=== PATIENT | female | born 1955 | race Caucasian/White ===

== ENCOUNTER → 2017-02-20 | Outpatient (CLI) | payer OTHER ==
[~2017-02-20] MED LIST: DAYPRO600 M1 PO; MEDROL DOSEPAK4 MG PO
== END | disposition home or self-care (01) ==
LOC: RAD 12:13
DX: M25.552 Pain in left hip (principal)

== ENCOUNTER → 2017-06-06 | Outpatient (CLI) | payer OTHER | END | disposition home or self-care (01) | LOC: ORTHO 04:02 | DX: M47.897 Other spondylosis, lumbosacral region (principal); M25.552 Pain in left hip; M25.551 Pain in right hip; M79.605 Pain in left leg; M79.604 Pain in right leg ==

== ENCOUNTER → 2017-07-29 | Outpatient (CLI) | payer OTHER | END | disposition home or self-care (01) | LOC: MRI 13:00 | DX: M48.061 Spinal stenosis, lumbar region without neurogenic claudication (principal); M51.27 Other intervertebral disc displacement, lumbosacral region; M45.5 Ankylosing spondylitis of thoracolumbar region; M47.896 Other spondylosis, lumbar region ==

== ENCOUNTER 2017-09-12 15:41 | Inpatient (IN) | payer OTHER ==
[~2017-09-12] VITALS: Ht 182.8 cm; Wt 133.6 kg
--- NOTE | ~2017-09-12 | PR ---
[place], [place] PROGRESS NOTE NAME: JEREMIAH VALE UNIT #: [id number] ROOM: 408 DOCTOR: OBI MANNING MD BIRTHDATE: [birth year] DOS: 09/16/2017 SUBJECTIVE: The patient is doing fine without any complaint. She is ambulating without any pain. OBJECTIVE: VITAL SIGNS: Blood pressure is , pulse of 58, respirations 18, temperature 98.0. LUNGS: Diminished breath sounds. No wheezes, rales, rhonchi heard. HEART: Regular. ABDOMEN: Obese, soft, nontender. EXTREMITIES: Decreased edema around the thigh. There is no cellulitis noted. ASSESSMENT AND PLAN: 1. Abscess of the right thigh, improving with packings and antibiotics. 2. Benign hypertension, poorly controlled, possibly related to anxiety of being here. She is anxious to go home. We will follow up that as an outpatient. Medication changes were made. OBI MANNING MD CM:PNTRANS [id number] OBI MANNING MD 09/16/17 0903 interface
--- NOTE | ~2017-09-12 | PR ---
[place], [place] PROGRESS NOTE NAME: JEREMIAH VALE UNIT #: [id number] ROOM: 408 DOCTOR: OBI MANNING MD BIRTHDATE: [birth year] DOS: 09/15/2017 SUBJECTIVE: The patient is doing fine without any complaints. OBJECTIVE: GENERAL: She is awake and alert and oriented. VITAL SIGNS: Blood pressure is 146/80, pulse of 70, respirations 18, temperature 97.5. LUNGS: Diminished breath sounds, clear. HEART: Regular. ABDOMEN: Obese, soft, nontender. EXTREMITIES: Without any edema. Right thigh, there is less induration, less swelling, less redness noticed today. LABORATORY DATA: White cell count is normal at 7.1, hemoglobin 11.2, hematocrit 34.0. Blood culture shows no bacterial growth. ASSESSMENT AND PLAN: 1. Abscess of the thigh, incision and drained and doing well. Plan is to arrange visiting nurses for packing as an outpatient and the patient can be discharged on p.o. antibiotics. We will plan to discharge in the morning. 2. Type 2 diabetes mellitus. Blood sugars are controlled. 3. Benign hypertension, not very well controlled, possibly from anxiety and most likely discomfort from the recent procedure. Dilaudid was given, readjust antihypertensives. OBI MANNING MD CM:PNTRANS [id number] OBI MANNING MD 09/15/17926 interface
--- NOTE | ~2017-09-12 | WRIGHTHP ---
[place], [place] PATIENT HISTORY AND PHYSICAL EXAM NAME: JEREMIAH VALE [facility] #: [id number] UNIT #: [id number] ROOM: 408 DOCTOR: RAFI AMOS MD BIRTHDATE: [birth year] DOS: 09/12/2017 HISTORY OF PRESENT ILLNESS: The patient is a 62-year-old female with a past medical history of: 1. Obesity. 2. Type 2 diabetes mellitus. 3. Major depression, recurrent. 4. COPD. 5. Hypothyroidism. 6. Mixed hyperlipidemia. 7. Chronic primary insomnia. 8. Benign essential hypertension. The patient presented to the Emergency Department with complaints of increasing pain and swelling in the right inner thigh and she was found to have an abscess. The patient was admitted and taken for incision and drainage. The patient's wound cultures were already sent prior to this by Dr. Abarca. The patient is starting to feel better. No chest pain. No shortness of breath. No GI or urinary symptoms. REVIEW OF SYSTEMS: LUNGS: No increasing shortness of breath. GASTROINTESTINAL: No nausea, vomiting, diarrhea or constipation. CARDIOVASCULAR: No chest pains or palpitations. FAMILY HISTORY: Noncontributory. SOCIAL HISTORY: The patient is . Denies smoking cigarettes, alcohol and drug abuse. HOME MEDICATIONS: The patient takes buspirone, tizanidine, amlodipine, clonidine, doxazosin, Vasotec, fenofibrate, folic acid, metoprolol, gabapentin, Tradjenta, Levemir, Lipitor, trazodone. ALLERGIES: Known allergies to PENICILLIN and CLINDAMYCIN and BEE STINGS. PHYSICAL EXAMINATION: GENERAL: The patient is alert, oriented x 3. The patient with obesity, in no visible distress. VITAL SIGNS: Blood pressure 176/90, heart rate 81 beats per minute, breathing 20 times per minute, temperature 98 degrees Fahrenheit. HEENT AND NECK: Extraocular movements are intact. Sclerae are anicteric. Oral mucosa is moist and clean. No obvious facial weakness. Neck is supple without any lymphadenopathy. No thyromegaly. No JVD. No carotid arterial bruits. LUNGS: Clear to auscultation. No wheezing. No rhonchi. CARDIOVASCULAR SYSTEM: Heart rate is regular in rate and rhythm. S1 and S2 normally audible. No significant murmur or any other abnormal cardiac sounds. ABDOMEN: Soft, nontender. No obvious organomegaly. Bowel sounds are present. No obvious herniation. [place], [place] PATIENT HISTORY AND PHYSICAL EXAM NAME: JEREMIAH VALE UNIT #: [id number] ROOM: [facility] DOCTOR: RAFI AMOS MD BIRTHDATE: [birth year] EXTREMITIES: Without significant cyanosis or edema. Warm to touch. The patient had incision and drainage on the right inner thigh. CENTRAL NERVOUS SYSTEM: Alert and oriented x 3. Cranial nerves II-XII are intact. Speech is normal. The patient is able to move all extremities. Normal muscle strength. Deep tendon reflexes are equal on both sides. Plantars were downgoing. LABORATORY DATA: Wound culture is growing group C streptococcus. Normal serum electrolytes. Blood sugar of 240. Normal CBC. Lactic acid level elevated to 2.4, came down to normal. IMPRESSION: 1. The patient with right inner thigh abscess, status post incision and drainage by Dr. Abacra. The patient is doing very well. 2. Uncontrolled type 2 diabetes mellitus. Blood sugars are elevated. Blood sugar is to be monitored and treated. All of her home medications for diabetes including Tradjenta, insulin were all continued. 3. The patient remains on IV vancomycin and cefazolin for recent infection and abscess, which was just drained. 4. Benign essential hypertension, being treated with clonidine and amlodipine. The patient also takes metoprolol. Blood pressure is being monitored and staying high at this time. 5. Mixed hyperlipidemia. Continue the patient on Lipitor. 6. Chronic primary insomnia, treated and controlled with trazodone. 7. Mixed hyperlipidemia, treated with fenofibrate, which has been continued and Lipitor. RAFI AMOS MD CM:HISPHYS:PATIENT HISTORY AND PHYSICAL EXAMINATION 02 22 RAFI AMOS MD 09/13/172122 interface
--- NOTE | ~2017-09-12 | DS ---
[place], [place] DISCHARGE SUMMARY NAME: JEREMIAH VALE UNIT #: [id number] ROOM: 408 DOCTOR: OBI MANNING MD BIRTHDATE: [birth year] DOS: 09/16/2017 DIAGNOSES: 1. Right thigh abscess, status post incision and drainage. 2. Wound culture is growing group C streptococcus. 3. Diabetes mellitus, poorly controlled. 4. Benign hypertension, poorly controlled. 5. Mixed hyperlipidemia. 6. Chronic primary insomnia. 7. Chronic back pain. MEDICATIONS: That she is on discharge will be: Metoprolol 50 q.i.d., Cipro 500 b.i.d., Daypro 600 b.i.d., Levemir 1000 b.i.d., enalapril 20 b.i.d., Symbicort 160 two puffs twice a day, oxycodone 10 q.i.d., Cardura 8 mg daily, folic acid 1 mg daily, clonidine 0.2 b.i.d., Januvia 100 daily, Lipitor 40 daily, fenofibrate 145 daily, Zanaflex 4 mg t.i.d., Neurontin 300 b.i.d., aspirin 81 daily, amlodipine 10 daily, trazodone 100 at bedtime, BuSpar 10 q.i.d. HOSPITAL COURSE: The patient is very well known to us, had seen as an outpatient, had an abscess of the right thigh, was placed on antibiotics and she was seen by surgeon as an outpatient. Dr. Abarca saw her in the office, performed an I and D and felt that the patient would benefit from admission, so was sent out to the Emergency Room. Please refer to H and P dictated by Dr. Carvajal for details. After admission, the patient was placed on IV antibiotics and she was taken for further debridement in the OR. A large abscess was evacuated and packings were applied. The swelling and the redness and the induration have subsided. The wound is clean without any evidence of any eschar. This morning the patient is stable. The plan is to discharge her to home today, to follow up as an outpatient. DISCHARGE INSTRUCTIONS: ADA diet, 1800. Visiting nurses have been consulted for wound care with [facility]. [place], [place] DISCHARGE SUMMARY NAME: JEREMIAH VALE UNIT #: [id number] ROOM: 408 DOCTOR: OBI MANNING MD BIRTHDATE: [birth year] OBI MANNING MD CM:ALEXIS [id number] OBI MANNING MD 09/16/17 0943 interface
--- NOTE | ~2017-09-12 | PR ---
[place], [place] PROGRESS NOTE NAME: JEREMIAH VALE UNIT #: [id number] ROOM: 408 DOCTOR: OBI MANNING MD BIRTHDATE: [birth year] DOS: 09/14/2017 SUBJECTIVE: The patient is not having any new complaints, wants to go home. OBJECTIVE: VITAL SIGNS: Graphic trend shows a pressure of 163/56, pulse of 70, respirations 18, temperature 97.5. LUNGS: Diminished breath sounds. HEART: Regular. ABDOMEN: Obese, soft. EXTREMITIES: No edema. Right thigh looks less red, less swollen, less indurated. ASSESSMENT AND PLAN: 1. Abscess of the right thigh, status post debridement. 2. Group C streptococcus in the wound already on multiple antibiotics. 3. Type 2 diabetes mellitus, insulin-dependent. Blood sugars fairly controlled. 4. Benign hypertension. Continue home meds. Routine labs to be ordered and if surgery clears, we will plan to discharge home soon. OBI MANNING MD CM:PNTRANS [id number] OBI MANNING MD 09/19/17 1557 interface
[2017-09-12 15:48] VITALS: BP 148/78
[2017-09-12] MEDS ORDERED: VASOTEC20 MG PO (15:53)
[2017-09-12] MEDS ORDERED: SYMB160 INH (15:53)
[2017-09-12] MEDS ORDERED: LEVEMIR100 UNIT/1 IV (15:53)
[2017-09-12] MEDS ORDERED: OXYCODONE HCL10 M1 PO (15:54)
[2017-09-12] MEDS ORDERED: CARDURA8 M1 PO (15:54)
[2017-09-12] MEDS ORDERED: NATURE'S BLEND F1 MG PO (15:54)
[2017-09-12] MEDS ORDERED: CLONIDINE0.2 MG PO (15:54)
[2017-09-12] MEDS ORDERED: LIPITOR40 MG PO (15:55)
[2017-09-12] MEDS ORDERED: TRICOR145 M1 PO (15:55)
[2017-09-12] MEDS ORDERED: ZANAFLEX4 M2 PO (15:55)
[2017-09-12] MEDS ORDERED: JANUVIA100 MG PO (15:55)
[2017-09-12] MEDS ORDERED: ASPIR LOW81 MG PO (15:56)
[2017-09-12] MEDS ORDERED: LOPRESSOR50 M1 PO (15:56)
[2017-09-12] MEDS ORDERED: NEURONTIN300 MG PO (15:56)
[2017-09-12] MEDS ORDERED: NORVASC10 MG PO (15:57)
[2017-09-12] MEDS ORDERED: TRAZODONE100 MG PO (15:58)
[2017-09-12] MEDS ORDERED: BUSPIRONE10 MG PO (15:59)
[2017-09-12 16:24] LABS: BASO # 0.1 10*3/uL (0.0-0.1); BASO % 0.8 % (0.0-1.0); HEMATOCRIT 38.2 % (37.0-47.0); HEMOGLOBIN 12.4 g/dl (12.0-16.0); LYMPH # 2.3 10*3/uL (1.3-4.4); MEAN CELL VOLUME 89.9 fl (81.0-99.0); MEAN CORPUSCULAR HGB 29.2 pg (27.0-31.0); MEAN CORPUSCULAR HGB CONC 32.5 g/dl (33.0-37.0); MEAN PLATELET VOLUME 8.9 fl (9.6-12.3); MONO # 0.4 10*3/uL (0.1-1.0); MONO % 5.3 % (3.0-9.0); NEUT # 5.1 10*3/uL (2.3-7.9); NEUT % 63.5 % (47.0-73.0); PLATELET COUNT AUTOMATED 410 10*3/uL (130-400); RED BLOOD COUNT 4.25 10*6/uL (4.10-5.10); RED CELL DISTRI WIDTH 13.4 % (0-14.5)
[2017-09-12 16:27] VITALS: BP 140/70
[2017-09-12 16:32] LABS: ALKALINE PHOSPHATASE 68 U/L (45-117); BUN 12 mg/dl (7-24); CHLORIDE 101 mmol/L (98-107); CREATININE 1.07 mg/dL (0.55-1.02); POTASSIUM 4.1 mmol/L (3.5-5.1); SGOT/AST 29 IU/L (3-35); SGPT/ALT 27 U/L (12-78); SODIUM 135 mmol/L (136-145); TOTAL PROTEIN 7.7 gm/dL (6.4-8.2)
[2017-09-12 16:52] VITALS: BP 141/66
[2017-09-12 20:00] VITALS: BP 150/63
[2017-09-13] VITALS (11 sets, daily range): BP systolic 160–196; BP diastolic 66–100
[2017-09-14] VITALS: BP 146/55
[2017-09-14 08:00] VITALS: BP 163/56
[2017-09-14 12:00] VITALS: BP 170/70
[2017-09-14 16:53] VITALS: BP 172/94
[2017-09-14 18:50] VITALS: BP 168/80
[2017-09-14 20:38] VITALS: BP 184/84
[2017-09-15] VITALS (7 sets, daily range): BP systolic 146–187; BP diastolic 59–81
[2017-09-15 06:20] LABS: BASO % 0.6 % (0.0-1.0); HEMOGLOBIN 11.2 g/dl (12.0-16.0); LYMPH # 2.6 10*3/uL (1.3-4.4); LYMPH % 36.2 % (27.0-41.0); MEAN CELL VOLUME 89.7 fl (81.0-99.0); MEAN CORPUSCULAR HGB 29.6 pg (27.0-31.0); MEAN CORPUSCULAR HGB CONC 32.9 g/dl (33.0-37.0); MEAN PLATELET VOLUME 8.6 fl (9.6-12.3); MONO # 0.4 10*3/uL (0.1-1.0); MONO % 5.2 % (3.0-9.0); NEUT % 56.3 % (47.0-73.0); PLATELET COUNT AUTOMATED 340 10*3/uL (130-400); RED BLOOD COUNT 3.79 10*6/uL (4.10-5.10); RED CELL DISTRI WIDTH 13.5 % (0-14.5); WHITE BLOOD COUNT 7.1 10*3/uL (4.8-10.8)
[2017-09-15 06:48] LABS: BUN 12 mg/dl (7-24); CHLORIDE 105 mmol/L (98-107); CREATININE 0.88 mg/dL (0.55-1.02); POTASSIUM 3.9 mmol/L (3.5-5.1); SODIUM 139 mmol/L (136-145)
[2017-09-16] VITALS: BP 196/75
[2017-09-16 08:00] VITALS: BP 188/77
[2017-09-16] MEDS ORDERED: CIPRO500 MG PO (08:28)
[2017-09-16] MEDS ORDERED: METOPROLOL TART50 M1 PO (08:28)
[2017-09-16] MEDS ORDERED: LEVEMIR100 UNIT/1 SC ×2 (08:41)
== END 2017-09-16 10:00 | disposition home health service (06) | DRG 571 ==
LOC: ED 15:41 → 4E 16:06 → EDHOLD 16:06 → 4E 16:18
PROVIDERS: Internal Medicine; Physician Assistant
PROC: 0JBL0ZZ Excision of Right Upper Leg Subcutaneous Tissue and Fascia, Open Approach (ICD-10-PCS; principal; 2017-09-13)
DX: S71.101A Unspecified open wound, right thigh, initial encounter (principal); L02.415 Cutaneous abscess of right lower limb; E11.65 Type 2 diabetes mellitus with hyperglycemia; F33.9 Major depressive disorder, recurrent, unspecified; L03.115 Cellulitis of right lower limb; B95.4 Other streptococcus as the cause of diseases classified elsewhere; I10 Essential (primary) hypertension; E78.2 Mixed hyperlipidemia; F51.01 Primary insomnia; G89.29 Other chronic pain; M54.9 Dorsalgia, unspecified; E66.9 Obesity, unspecified; J44.9 Chronic obstructive pulmonary disease, unspecified; E03.9 Hypothyroidism, unspecified; X58.XXXA Exposure to other specified factors, initial encounter; Z79.899 Other long term (current) drug therapy; Z79.82 Long term (current) use of aspirin; Z88.0 Allergy status to penicillin; Z88.1 Allergy status to other antibiotic agents; Z91.030 Bee allergy status; Z79.4 Long term (current) use of insulin; Y93.89 Activity, other specified; Y92.89 Other specified places as the place of occurrence of the external cause; Y99.8 Other external cause status; Z68.39 Body mass index [BMI] 39.0-39.9, adult

== ENCOUNTER → 2017-10-01 | Outpatient (CLI) | payer OTHER ==
[~2017-10-01] MED LIST changes: +ASPIR LOW81 MG PO; +BUSPIRONE10 MG PO; +CARDURA8 M1 PO; +CIPRO500 MG PO; +CLONIDINE0.2 MG PO; +JANUVIA100 MG PO; +LEVEMIR100 UNIT/1 IV; +LEVEMIR100 UNIT/1 SC; +LIPITOR40 MG PO; +LOPRESSOR50 M1 PO; +METOPROLOL TART50 M1 PO; +NATURE'S BLEND F1 MG PO; +NEURONTIN300 MG PO; +NORVASC10 MG PO; +OXYCODONE HCL10 M1 PO; +SYMB160 INH; +TRAZODONE100 MG PO; +TRICOR145 M1 PO; +VASOTEC20 MG PO; +ZANAFLEX4 M2 PO
== END | disposition home or self-care (01) ==
LOC: WOUNDCARE 03:24
DX: S71.101D Unspecified open wound, right thigh, subsequent encounter (principal); L02.415 Cutaneous abscess of right lower limb; E11.9 Type 2 diabetes mellitus without complications; I10 Essential (primary) hypertension; Z87.891 Personal history of nicotine dependence; X58.XXXD Exposure to other specified factors, subsequent encounter

== ENCOUNTER → 2017-10-08 | Outpatient (CLI) | payer OTHER | END | disposition home or self-care (01) | LOC: WOUNDCARE 03:58 | DX: S71.101D Unspecified open wound, right thigh, subsequent encounter (principal); L02.415 Cutaneous abscess of right lower limb; E11.9 Type 2 diabetes mellitus without complications; I10 Essential (primary) hypertension; Z87.891 Personal history of nicotine dependence; X58.XXXD Exposure to other specified factors, subsequent encounter ==

== ENCOUNTER → 2017-10-15 | Outpatient (CLI) | payer OTHER | END | disposition home or self-care (01) | LOC: WOUNDCARE 02:30 | DX: S71.101D Unspecified open wound, right thigh, subsequent encounter (principal); L02.415 Cutaneous abscess of right lower limb; E11.9 Type 2 diabetes mellitus without complications; I10 Essential (primary) hypertension; Z87.891 Personal history of nicotine dependence; X58.XXXD Exposure to other specified factors, subsequent encounter ==

== ENCOUNTER → 2017-11-08 | Outpatient (CLI) | payer OTHER | END | disposition home or self-care (01) | LOC: LAB 11:32 | DX: R53.83 Other fatigue (principal) ==

== ENCOUNTER → 2018-01-08 | Outpatient (CLI) | payer OTHER ==
[~2018-01-08] MED LIST changes: +DEXILANT30 MG PO; +TOPROL XL100 MG PO
== END | disposition home or self-care (01) ==
LOC: MAMMO 09:57
DX: Z12.31 Encounter for screening mammogram for malignant neoplasm of breast (principal)

== ENCOUNTER → 2018-01-10 | Day surgery (SDC) | payer OTHER ==
[~2018-01-10] VITALS: Ht 182.8 cm; Wt 134.7 kg
--- NOTE | ~2018-01-10 | PROC NOTE ---
[place], [place] PROCEDURE NOTE NAME: JEREMIAH VALE UNIT #: [id number] ROOM: DOCTOR: KARMEN HOWARD,JAX BIRTHDATE: [birth year] DOS: PROCEDURE: Esophagogastroduodenoscopy and biopsy. INDICATION: Abdominal pain and nausea. An informed consent was obtained from the patient after indication of procedure, the alternatives and potential complications were explained to her. PROCEDURE MEDICATION: Sedation was administered by Anesthesiology Department. SCOPE USED: Olympus diagnostic adult upper endoscope GIF-180, depth of insertion was to the descending duodenum. FINDINGS: After adequate sedation, the patient was placed in left lateral decubitus position. The scope was introduced under direct visualization through the upper esophageal sphincter into the esophagus. Esophageal mucosa appeared normal with no ulcerations or strictures. Lower esophageal sphincter was identified at 42 cm from incisors. Normal-appearing Z line. Stomach was then intubated. Gastric mucosa inspected. Large amounts of solid food were noted suggestive of delayed gastric emptying. The underlying mucosa showed evidence of gastritis, mostly in the antrum and a CLOtest was performed from the gastric antrum and body. Retroflexed views in the fundus showed a grade 1 sliding hiatal hernia. Pylorus was intubated easily. The duodenal bulb and descending duodenum were within normal range. The scope was then withdrawn after the stomach was decompressed. The patient tolerated the procedure well. IMPRESSION: 1. Large amounts of food residues in the stomach, rule out delayed gastric emptying. 2. Small hiatal hernia. 3. Gastritis, CLOtest performed. PLAN: We will review the CLOtest results and treat the patient accordingly. The patient will be scheduled for a smart pill motility study as an outpatient. Office followup will be scheduled in 2-3 weeks. JAX PERAZA MD CM:PROCNOTE:PROCEDURE NOTE 0911 [id number] OBI PERAZA MD
[2018-01-10 08:30] VITALS: BP 131/80
[2018-01-10 09:10] VITALS: BP 156/65
[2018-01-10 09:20] VITALS: BP 160/80
[2018-01-10 09:40] VITALS: BP 158/84
== END | disposition home or self-care (01) ==
LOC: SDC 12-23 10:15
DX: K29.70 Gastritis, unspecified, without bleeding (principal); K44.9 Diaphragmatic hernia without obstruction or gangrene; I10 Essential (primary) hypertension; E11.9 Type 2 diabetes mellitus without complications; J44.9 Chronic obstructive pulmonary disease, unspecified; G43.909 Migraine, unspecified, not intractable, without status migrainosus; K21.9 Gastro-esophageal reflux disease without esophagitis; E66.01 Morbid (severe) obesity due to excess calories; F41.9 Anxiety disorder, unspecified; F32.9 Major depressive disorder, single episode, unspecified; Z68.41 Body mass index [BMI] 40.0-44.9, adult; Z83.3 Family history of diabetes mellitus; Z87.891 Personal history of nicotine dependence; Z82.49 Family history of ischemic heart disease and other diseases of the circulatory system; Z79.899 Other long term (current) drug therapy; Z98.890 Other specified postprocedural states; Z87.19 Personal history of other diseases of the digestive system

== ENCOUNTER → 2020-10-17 | Outpatient (CLI) | payer OTHER ==
[2020-10-17 14:13] LABS: BASO % 0.3 % (0.0-1.0); HEMATOCRIT 43.2 % (37.0-47.0); LYMPH # 1.1 10*3/uL (1.3-4.4); LYMPH % 15.9 % (27.0-41.0); MEAN CELL VOLUME 97.7 fl (81.0-99.0); MEAN CORPUSCULAR HGB 30.8 pg (27.0-31.0); MEAN CORPUSCULAR HGB CONC 31.5 g/dl (33.0-37.0); MEAN PLATELET VOLUME 9.5 fl (9.6-12.3); MONO # 0.4 10*3/uL (0.1-1.0); MONO % 4.9 % (3.0-9.0); NEUT # 5.6 10*3/uL (2.3-7.9); NEUT % 78.5 % (47.0-73.0); PLATELET COUNT AUTOMATED 244 10*3/uL (130-400); RED BLOOD COUNT 4.42 10*6/uL (4.10-5.10); RED CELL DISTRI WIDTH 14.3 % (0-14.5); WHITE BLOOD COUNT 7.2 10*3/uL (4.8-10.8)
[2020-10-17 14:49] LABS: ALBUMIN 3.5 gm/dl (3.1-4.5); CREATININE 1.59 mg/dL (0.55-1.02); FREE T4 0.77 ng/dl (0.76-1.46); POTASSIUM 4.4 mmol/L (3.5-5.1)
[2020-10-17 14:54] LABS: THYROID STIM HORMONE (HS) 1.59 uIU/ml (0.358-4.75); TOTAL PROTEIN 7.7 gm/dL (6.4-8.2)
== END | disposition home or self-care (01) ==
LOC: LAB 13:26 → MAMMO 14:00
PROVIDERS: ATTEND Internal Medicine
DX: Z12.31 Encounter for screening mammogram for malignant neoplasm of breast (principal); I10 Essential (primary) hypertension; E55.9 Vitamin D deficiency, unspecified; E11.9 Type 2 diabetes mellitus without complications; N64.89 Other specified disorders of breast; E78.2 Mixed hyperlipidemia; Z00.00 Encounter for general adult medical examination without abnormal findings

== ENCOUNTER → 2021-06-20 | Outpatient (CLI) | payer OTHER | END | disposition home or self-care (01) | LOC: US 01:26 → MAMMO 14:30 | PROVIDERS: ATTEND Internal Medicine | DX: G62.9 Polyneuropathy, unspecified (principal); R20.0 Anesthesia of skin; E11.9 Type 2 diabetes mellitus without complications; I73.9 Peripheral vascular disease, unspecified ==

== ENCOUNTER 2021-08-26 10:21 | Emergency (ER) | payer OTHER ==
[2021-08-26] MEDS ORDERED: HYDROCODONE-AC1 EAC1 PO (11:35)
== END 2021-08-26 12:52 | disposition home or self-care (01) ==
LOC: ED 10:21
DX: S42.292A Other displaced fracture of upper end of left humerus, initial encounter for closed fracture (principal); R07.81 Pleurodynia; M25.561 Pain in right knee; J44.9 Chronic obstructive pulmonary disease, unspecified; F17.200 Nicotine dependence, unspecified, uncomplicated; E66.01 Morbid (severe) obesity due to excess calories; Z88.0 Allergy status to penicillin; Z68.31 Body mass index [BMI] 31.0-31.9, adult; Z91.030 Bee allergy status; Z88.1 Allergy status to other antibiotic agents; Z79.899 Other long term (current) drug therapy; Z79.4 Long term (current) use of insulin; Z79.82 Long term (current) use of aspirin; Z90.89 Acquired absence of other organs; W00.0XXA Fall on same level due to ice and snow, initial encounter; Y93.01 Activity, walking, marching and hiking; Y92.89 Other specified places as the place of occurrence of the external cause; Y99.8 Other external cause status

== ENCOUNTER 2021-09-13 12:38 | Inpatient (IN) | payer OTHER ==
[~2021-09-13] VITALS: Ht 183 cm; Wt 136.0 kg
[~2021-09-13 12:38] MED LIST changes: +HYDROCODONE-AC1 EAC1 PO
[2021-09-13 12:54] VITALS: BP 151/66
[2021-09-13 13:27] LABS: BASO % 0.6 % (0.0-1.0); HEMATOCRIT 42.5 % (37.0-47.0); LYMPH # 1.6 10*3/uL (1.3-4.4); MEAN CELL VOLUME 94.7 fl (81.0-99.0); MEAN CORPUSCULAR HGB 29.8 pg (27.0-31.0); MEAN CORPUSCULAR HGB CONC 31.5 g/dl (33.0-37.0); MEAN PLATELET VOLUME 8.8 fl (9.6-12.3); MONO # 0.4 10*3/uL (0.1-1.0); MONO % 5.9 % (3.0-9.0); NEUT # 5.1 10*3/uL (2.3-7.9); NEUT % 70.8 % (47.0-73.0); PLATELET COUNT AUTOMATED 311 10*3/uL (130-400); RED BLOOD COUNT 4.49 10*6/uL (4.10-5.10); RED CELL DISTRI WIDTH 14.6 % (0-14.5); WHITE BLOOD COUNT 7.2 10*3/uL (4.8-10.8)
[2021-09-13 13:39] LABS: ACT PARTIAL THROMBO TIME 25.1 SECONDS (20.0-32.1)
[2021-09-13 13:44] LABS: ALKALINE PHOSPHATASE 93 U/L (45-117); BUN 27 mg/dl (7-24); CHLORIDE 107 mmol/L (98-107); CREATININE 1.24 mg/dL (0.55-1.02); LIPASE 206 U/L (73-393); POTASSIUM 4.4 mmol/L (3.5-5.1); SGOT/AST 12 IU/L (3-35); SGPT/ALT 19 U/L (12-78); SODIUM 140 mmol/L (136-145); TOTAL PROTEIN 7.4 gm/dL (6.4-8.2)
[2021-09-13 17:00] VITALS: BP 152/80
[2021-09-13 18:18] LABS: BILIRUBIN Negative (Negative); BLOOD Negative (Negative); CLARITY Clear (Clear); COLOR Yellow (Yellow); GLUCOSE 1+ (Negative); KETONE Trace (Negative); LEUKO ESTERASE Negative (Negative); NITRITE Negative (Negative); SPECIFIC GRAVITY >= 1.030 (1.001-1.030)
[2021-09-13 18:23] LABS: YEAST 3+
[2021-09-13 20:43] VITALS: BP 151/66
[2021-09-13 21:00] VITALS: BP 148/92
[2021-09-13 22:10] VITALS: BP 140/70
[2021-09-14 08:00] VITALS: BP 179/77
[2021-09-14] MEDS ORDERED: CEFUROXIME AXE250 MG PO (08:34)
[2021-09-14 12:00] VITALS: BP 179/76
[2021-09-14 16:00] VITALS: BP 151/57
[2021-09-14 20:00] VITALS: BP 155/69
[2021-09-15] VITALS: BP 160/70
[2021-09-15 08:00] VITALS: BP 148/80
== END 2021-09-15 13:54 | disposition home or self-care (01) | DRG 189 ==
LOC: ED 12:38 → 4E 18:28 → EDHOLD 18:28 → 4E 21:15
PROVIDERS: Physician Assistant; ADMIT Internal Medicine; ATTEND Internal Medicine
DX: J96.01 Acute respiratory failure with hypoxia (principal); J98.11 Atelectasis; S22.39XA Fracture of one rib, unspecified side, initial encounter for closed fracture; M48.061 Spinal stenosis, lumbar region without neurogenic claudication; E78.2 Mixed hyperlipidemia; E66.01 Morbid (severe) obesity due to excess calories; E11.9 Type 2 diabetes mellitus without complications; N18.9 Chronic kidney disease, unspecified; X58.XXXA Exposure to other specified factors, initial encounter; I12.9 Hypertensive chronic kidney disease with stage 1 through stage 4 chronic kidney disease, or unspecified chronic kidney disease; E11.22 Type 2 diabetes mellitus with diabetic chronic kidney disease; Z88.0 Allergy status to penicillin; Z91.030 Bee allergy status; Z88.1 Allergy status to other antibiotic agents; Z79.1 Long term (current) use of non-steroidal anti-inflammatories (NSAID); Z79.4 Long term (current) use of insulin; Z79.899 Other long term (current) drug therapy; Y93.89 Activity, other specified; Y92.89 Other specified places as the place of occurrence of the external cause; Y99.8 Other external cause status

== ENCOUNTER → 2021-10-13 | Outpatient (CLI) | payer OTHER ==
[~2021-10-13] MED LIST changes: +CEFUROXIME AXE250 MG PO
== END | disposition home or self-care (01) ==
LOC: ORTHO 00:21
PROVIDERS: ATTEND Orthopaedic Surgery
DX: S42.292D Other displaced fracture of upper end of left humerus, subsequent encounter for fracture with routine healing (principal); S42.222D 2-part displaced fracture of surgical neck of left humerus, subsequent encounter for fracture with routine healing; X58.XXXD Exposure to other specified factors, subsequent encounter

== ENCOUNTER → 2021-11-23 | Outpatient (CLI) | payer OTHER | END | disposition home or self-care (01) | LOC: RAD 13:45 | PROVIDERS: ATTEND Internal Medicine | DX: M85.852 Other specified disorders of bone density and structure, left thigh (principal); Z78.0 Asymptomatic menopausal state ==

== ENCOUNTER → 2022-01-03 | Outpatient (CLI) | payer OTHER ==
[2022-01-03 10:42] VITALS: BP 154/77
== END | disposition home or self-care (01) ==
LOC: INJECTION 10:31
PROVIDERS: ATTEND Internal Medicine
DX: M81.0 Age-related osteoporosis without current pathological fracture (principal); I10 Essential (primary) hypertension; J44.9 Chronic obstructive pulmonary disease, unspecified; M48.00 Spinal stenosis, site unspecified; E10.9 Type 1 diabetes mellitus without complications; Z79.4 Long term (current) use of insulin; Z87.891 Personal history of nicotine dependence

== ENCOUNTER → 2022-07-11 | Outpatient (CLI) | payer OTHER ==
[2022-07-11 10:28] VITALS: BP 164/73
[2022-07-11 11:25] LABS: BASO # 0.1 10*3/uL (0.0-0.1); BASO % 0.9 % (0.0-1.0); EOS # 0.1 10*3/uL (0.0-0.4); EOS % 0.9 % (1.0-4.0); HEMATOCRIT 41.6 % (37.0-47.0); LYMPH # 1.4 10*3/uL (1.3-4.4); MEAN CELL VOLUME 94.3 fl (81.0-99.0); MEAN CORPUSCULAR HGB 30.2 pg (27.0-31.0); MEAN PLATELET VOLUME 9.1 fl (9.6-12.3); MONO # 0.4 10*3/uL (0.1-1.0); MONO % 6.4 % (3.0-9.0); NEUT # 3.7 10*3/uL (2.3-7.9); NEUT % 65.9 % (47.0-73.0); PLATELET COUNT AUTOMATED 247 10*3/uL (130-400); RED BLOOD COUNT 4.41 10*6/uL (4.10-5.10); RED CELL DISTRI WIDTH 14.2 % (0-14.5); WHITE BLOOD COUNT 5.7 10*3/uL (4.8-10.8)
[2022-07-11 11:44] LABS: ALKALINE PHOSPHATASE 93 U/L (45-117); BUN 23 mg/dl (7-24); CHLORIDE 109 mmol/L (98-107); CHOLESTEROL 231 mg/dL (<200); CREATININE 1.05 mg/dL (0.55-1.02); FREE T4 0.77 ng/dl (0.76-1.46); LDL CHOLESTEROL 140 mg/dL (9-159); POTASSIUM 4.7 mmol/L (3.5-5.1); SGPT/ALT 24 U/L (12-78); SODIUM 142 mmol/L (136-145); TRIGLYCERIDES 261 mg/dl (<150)
[2022-07-11 12:03] LABS: VITAMIN D, 25-HYDROXY 67.5 ng/mL (30-100)
== END | disposition home or self-care (01) ==
LOC: INJECTION 07-09 10:00 → LAB 10:14
PROVIDERS: ATTEND Internal Medicine
DX: M81.0 Age-related osteoporosis without current pathological fracture (principal); I10 Essential (primary) hypertension; E11.40 Type 2 diabetes mellitus with diabetic neuropathy, unspecified; E11.65 Type 2 diabetes mellitus with hyperglycemia; E78.5 Hyperlipidemia, unspecified; F41.9 Anxiety disorder, unspecified; F32.A Depression, unspecified; G89.29 Other chronic pain; J44.9 Chronic obstructive pulmonary disease, unspecified; M48.00 Spinal stenosis, site unspecified; Z79.4 Long term (current) use of insulin; Z87.891 Personal history of nicotine dependence; Z98.890 Other specified postprocedural states

== ENCOUNTER → 2022-09-10 | Outpatient (CLI) | payer OTHER | END | disposition home or self-care (01) | LOC: CARD 10:30 | PROVIDERS: ATTEND Internal Medicine | DX: R06.02 Shortness of breath (principal) ==

== ENCOUNTER → 2023-01-11 | Outpatient (CLI) | payer OTHER ==
[2023-01-11 10:46] VITALS: BP 141/54
== END | disposition home or self-care (01) ==
LOC: INJECTION 09:54
PROVIDERS: ATTEND Internal Medicine
DX: M81.0 Age-related osteoporosis without current pathological fracture (principal)

== ENCOUNTER → 2024-01-06 | Outpatient (CLI) | payer OTHER ==
[2024-01-06 14:48] LABS: BASO % 0.5 % (0.0-1.0); HEMATOCRIT 45.5 % (37.0-47.0); LYMPH # 2.1 10*3/uL (1.3-4.4); LYMPH % 23.7 % (27.0-41.0); MEAN CELL VOLUME 98.9 fl (81.0-99.0); MEAN CORPUSCULAR HGB 30.4 pg (27.0-31.0); MEAN CORPUSCULAR HGB CONC 30.8 g/dl (33.0-37.0); MEAN PLATELET VOLUME 9.2 fl (9.6-12.3); MONO # 0.5 10*3/uL (0.1-1.0); MONO % 5.7 % (3.0-9.0); NEUT # 6.1 10*3/uL (2.3-7.9); NEUT % 69.6 % (47.0-73.0); PLATELET COUNT AUTOMATED 208 10*3/uL (130-400); RED CELL DISTRI WIDTH 15.9 % (0-14.5); WHITE BLOOD COUNT 8.7 10*3/uL (4.8-10.8)
[2024-01-06 15:35] LABS: FREE T4 0.76 ng/dl (0.89-1.76); POTASSIUM 4.8 mmol/L (3.4-5.1); TOTAL PROTEIN 6.8 gm/dL (6.0-8.0); VITAMIN D, 25-HYDROXY 54.9 ng/mL (30-100)
== END | disposition home or self-care (01) ==
LOC: MAMMO 11-25 08:00 → LAB 12-18 02:47 → MAMMO 12-18 10:30 → LAB 01:44
PROVIDERS: ATTEND Internal Medicine
DX: Z12.31 Encounter for screening mammogram for malignant neoplasm of breast (principal); Z13.0 Encounter for screening for diseases of the blood and blood-forming organs and certain disorders involving the immune mechanism; Z13.1 Encounter for screening for diabetes mellitus; Z13.21 Encounter for screening for nutritional disorder; Z13.220 Encounter for screening for lipoid disorders; Z13.228 Encounter for screening for other metabolic disorders; Z13.29 Encounter for screening for other suspected endocrine disorder; Z13.6 Encounter for screening for cardiovascular disorders; Z13.89 Encounter for screening for other disorder; Z13.9 Encounter for screening, unspecified; E10.9 Type 1 diabetes mellitus without complications; I10 Essential (primary) hypertension

== ENCOUNTER → 2024-01-30 | Outpatient (CLI) | payer OTHER ==
[~2024-01-30] MED LIST changes: +DENOSUMAB 60 MG/ML SYRINGE SC ONE
[2024-01-30 10:25] VITALS: BP 186/82
== END | disposition home or self-care (01) ==
LOC: INJECTION 01:16
PROVIDERS: ATTEND Internal Medicine
DX: M81.0 Age-related osteoporosis without current pathological fracture (principal); I10 Essential (primary) hypertension; E11.9 Type 2 diabetes mellitus without complications; J44.9 Chronic obstructive pulmonary disease, unspecified; F32.A Depression, unspecified; F41.9 Anxiety disorder, unspecified; Z79.4 Long term (current) use of insulin; Z87.891 Personal history of nicotine dependence

== ENCOUNTER → 2024-09-22 | Outpatient (CLI) | payer OTHER ==
[2024-09-22 10:16] VITALS: BP 158/76
== END ==
LOC: INJECTION 09-18 09:30
PROVIDERS: ATTEND Internal Medicine
DX: M81.0 Age-related osteoporosis without current pathological fracture (principal); F32.A Depression, unspecified; E11.9 Type 2 diabetes mellitus without complications; I10 Essential (primary) hypertension; K21.9 Gastro-esophageal reflux disease without esophagitis; E78.5 Hyperlipidemia, unspecified; J44.9 Chronic obstructive pulmonary disease, unspecified